=== PATIENT | male | born 1980 | race Caucasian/White ===

== ENCOUNTER → 2024-08-21 | Outpatient (CLI) | payer OTHER ==
[~2024-08-21] MED LIST: NO HOME MEDICATIONS; PEPCID 20MG TAB20 MG PO; QUESTRAN4 GM/9 GM PO
== END ==
LOC: COL.RAD 08:08
DX: M46.1 Sacroiliitis, not elsewhere classified (principal); M43.28 Fusion of spine, sacral and sacrococcygeal region